=== PATIENT | female | born 2000 ===

== ENCOUNTER → 2023-11-14 06:25 | Day surgery (SDC) | payer OTHER, SELFPAY | LOC: GI 06:25 | PROVIDERS: ATTENDING PHYSICIAN Internal Medicine | DX: K62.5 Hemorrhage of anus and rectum (principal); Z83.719 Family history of colon polyps, unspecified; Z80.0 Family history of malignant neoplasm of digestive organs; K64.8 Other hemorrhoids | CPT/HCPCS: 45378 ==